=== PATIENT | male | born 1965 | race Caucasian/White ===

== ENCOUNTER 2016-10-18 02:02 | Emergency (ER) | payer OTHER ==
[~2016-10-18] VITALS: Ht 175.3 cm; Wt 76.4 kg
[2016-10-18 02:14] VITALS: BP 138/75
== END 2016-10-18 02:15 ==
LOC: EME 02:02
DX: F10.129 Alcohol abuse with intoxication, unspecified (principal)
CPT/HCPCS: 99281; 99283